=== PATIENT | female | born 1980 | race Caucasian/White ===

== ENCOUNTER → 2017-04-27 | Outpatient (CLI) | payer BC, OTHER ==
[2017-04-27 12:22] LABS: HEMOGLOBIN 12.7 g/dL (12.0-15.5); HGB HCT DIFFERENCE 2.1; MEAN CORPUSCULAR HEMOGLOBIN 28.2 pg (27.0-33.4); MEAN CORPUSCULAR HGB CONC 35.4 g/dL (32.0-36.0); MEAN CORPUSCULAR VOLUME 79 fl (80-97); RED BLOOD COUNT 4.53 10^6/uL (3.72-5.28); WHITE BLOOD COUNT 10.8 10^3/uL (4.0-10.5)
[2017-04-27 12:42] LABS: URINE CREATININE 80.9 mg/dL (16-327); URINE PROTEIN 10.2 mg/dL (<12)
[2017-04-27 12:46] LABS: ASPARTATE AMINO TRANSFERASE 19 U/L (14-36); CREATININE RESULT 0.45 mg/dL (0.52-1.25); LDH 362 U/L (313-618); URIC ACID 4.3 mg/dL (2.5-7.0)
== END ==
LOC: OD 11:48
PROVIDERS: ATTEND Registered Nurse Women's Health Care, Ambulatory
DX: O13.9 Gestational [pregnancy-induced] hypertension without significant proteinuria, unspecified trimester (principal)
CPT/HCPCS: 36415; 82565; 82570; 83615; 84156; 84450; 84550; 85027

== ENCOUNTER → 2017-05-04 | Outpatient (CLI) | payer BC ==
[2017-05-04 15:03] LABS: HEMATOCRIT 35.2 % (36.0-47.0); HGB HCT DIFFERENCE 0.8; MEAN CORPUSCULAR HGB CONC 34.2 g/dL (32.0-36.0); MEAN CORPUSCULAR VOLUME 79 fl (80-97); RED BLOOD COUNT 4.46 10^6/uL (3.72-5.28); RED CELL DISTRIBUTION WIDTH 15.9 % (11.5-14.0); WHITE BLOOD COUNT 10.9 10^3/uL (4.0-10.5)
[2017-05-04 15:26] LABS: ASPARTATE AMINO TRANSFERASE 17 U/L (14-36); CREATININE RESULT 0.46 mg/dL (0.52-1.25); LDH 364 U/L (313-618); URIC ACID 4.5 mg/dL (2.5-7.0)
[2017-05-04 15:46] LABS: URINE CREATININE 80.6 mg/dL (16-327); URINE PROTEIN 10.8 mg/dL (<12)
== END ==
LOC: OD 14:16
PROVIDERS: ATTEND Registered Nurse Women's Health Care, Ambulatory
DX: O13.9 Gestational [pregnancy-induced] hypertension without significant proteinuria, unspecified trimester (principal)
CPT/HCPCS: 36415; 82565; 82570; 83615; 84156; 84450; 84550; 85027